=== PATIENT | female | born 1960 | race Caucasian/White ===

== ENCOUNTER 2016-11-21 14:05 | Emergency (ER) | payer OTHER ==
[~2016-11-21] VITALS: Wt 120.0 kg
[2016-11-21 14:15] VITALS: BP 158/98; PULSE 100; RESP 18; TEMP 98
[2016-11-21] MEDS ORDERED: AMLO5TAB4 PO (14:41)
[2016-11-21 15:34] LABS: INR 0.85; PROTIME 11.6 Sec (12.2-14.2); PT RATIO 0.9
[2016-11-21 15:35] LABS: PARTIAL THROMBOPLASTIN TIME 30.4 Sec (25.0-35.0)
[2016-11-21 15:37] LABS: BASOPHILS % 0.6 % (0.0-2.0); EOSINOPHILS % 0.5 % (0.0-7.0); HEMATOCRIT 46.8 % (37.0-47.0); HEMOGLOBIN 16.5 g/dl (12.0-16.0); LYMPHOCYTES # 2.2 10^3/ul (0.8-2.9); LYMPHOCYTES % 27.4 % (15.0-51.0); MEAN CORPUSCULAR HEMOGLOBIN 29.9 pg (29.0-33.0); MEAN CORPUSCULAR HGB CONC 35.4 g/dl (32.0-37.0); MEAN CORPUSCULAR VOLUME 84.5 fl (82.0-101.0); MEAN PLATELET VOLUME 8.6 fl (7.4-10.4); MONOCYTE # 0.4 10^3/ul (0.3-0.9); MONOCYTES % 5.3 % (0.0-11.0); NEUTROPHIL # 5.4 10^3/ul (1.6-7.5); NEUTROPHILS % 66.2 % (39.0-77.0); PLATELET COUNT 285 10^3/UL (140-440); RED BLOOD COUNT 5.53 10^6/ul (4.20-5.40); RED CELL DISTRIBUTION WIDTH 12.9 % (11.5-14.5); UNCORRECTED WBC 8.1 10^3/ul (4.8-10.8); WHITE BLOOD COUNT 8.1 10^3/ul (4.8-10.8)
[2016-11-21 15:38] LABS: CHLORIDE 100 mmol/L (97-110); POTASSIUM 4.1 mmol/L (3.5-5.1); SODIUM 143 mmol/L (135-144)
[2016-11-21 15:39] LABS: CONDITION 1
[2016-11-21 15:41] LABS: ANION GAP 18 (8-16); BLOOD UREA NITROGEN 12 mg/dl (7-20); CARBON DIOXIDE 29 mmol/L (21-31); CREATININE 0.64 mg/dl (0.44-1.00); GLUCOSE 89 mg/dl (70-220)
[2016-11-21 15:42] LABS: CALCIUM 10.1 mg/dl (8.4-10.2)
--- NOTE | 2016-11-21 15:57 | RADRPT ---
PROCEDURE: Chest x-ray CLINICAL INDICATION: Left hand numbness TECHNIQUE: Chest single view COMPARISON: None FINDINGS: The heart is normal in size. The pulmonary vessels are normal in caliber. The lungs are clear. Th e costophrenic angles are sharp. The visualized bony thorax is unremarkable. IMPRESSION: No acute cardiopulmonary disease. RPTAT: HH .Brendon Lagos MD, Date Time Electronically viewed and signed by .Brendon Lagos MD, MD on 11/21/2016 15:56 .W/
[2016-11-21 15:58] LABS: TROPONIN-I < 0.012 ng/ml (0.00-0.12)
--- NOTE | 2016-12-01 23:55 | ERD ---
DATE OF SERVICE: 11/21/2016 HISTORY OF PRESENT ILLNESS: This 56-year-old female presented to the emergency room stating that jean lemus has bilateral hand numbness. Left hand was number than the right, and the right hand also felt "s haky." She denies chest pain, shortness of breath. Symptoms have been present for 1 day. She lindsey es any weakness, focal or otherwise. Has had no fevers or chills. REVIEW OF SYSTEMS: Ten-point review of systems negative except as in HPI. PAST MEDICAL HISTORY: Hypertension, arthritis of the hands. PAST SURGICAL HISTORY: Negative. FAMILY HISTORY: Noncontributory. SOCIAL HISTORY: Denies tobacco, alcohol and other drugs. PHYSICAL EXAMINATION: VITAL SIGNS: Temperature 98, pulse 102, blood pressure 158/98, respirations 18, oxygen saturation 1 00% on room air. GENERAL: No acute distress. HEENT: Normocephalic, atraumatic. NECK: Supple. No JVD, no meningismus. CARDIAC: Mild regular tachycardia without murmurs. LUNGS: Clear to auscultation bilaterally. ABDOMEN: Soft, nontender, nondistended. No masses. EXTREMITIES: No cyanosis, clubbing or edema. No signs of trauma. VASCULAR: Distal pulses intact, all 4 extremities. Capillary refill less than 1 second of hands. SKIN: No rashes or other lesions. NEUROLOGIC: Alert and oriented x3. Cranial nerves II through XII intact. No focal deficits, no ce rebellar deficits. Normal gait. DIAGNOSTIC DATA: Laboratories: Coagulation studies are within normal limits. Chemistries are with in normal limits. Troponin is negative. CBC within normal limits except for mildly elevated hemogl obin of 16.5. Chest x-ray interpretation by myself: I see no acute process, no widened mediastinum, no pneumothor ax, no infiltrates, no pulmonary edema, no bony abnormalities. EKG interpretation: Sinus tachycardia, rate of 101, normal axis. No ST or T-wave changes concernin g for acute ischemia. quantitative researcher interpretation: Normal sinus rhythm with occasional mild sinus tachycardia. No arr hythmias. EMERGENCY DEPARTMENT COURSE AND MEDICAL DECISION MAKING: The patient is complaining of bilateral chance nd paresthesias with shaking of her right hand. Hand was not actually shaking but feels shaky. The patient wonders if these symptoms could be related to arthritis. Cardiac workup was performed and shows no ischemic changes on EKG and a negative troponin after symptoms that the patient admits have present for 1 day but have occurred before. She has a completely normal neurological examination w ith no weakness. Bilateral symptoms, it is very unlikely that this is a cerebrovascular accident. The patient is hypertensive in the ER and has yet to take her evening blood pressure pills. Benefit s of acutely lowering the blood pressure in the emergency room did not outweigh the risks of hypoten edin in a nonmonitored situation. Discharging the patient with primary care followup, instructions to take her blood pressure medication, instruction to follow up with primary care doctor for a neuro logy referral. DISCHARGE DIAGNOSES: 1. Bilateral hand paresthesias. 2. Hypertension. DISPOSITION: Home in stable condition. Dictated By: ASHU GRANT/ALFONZO Conf#: [id number] DID#: [id number]
== END 2016-11-21 17:00 | disposition home or self-care (01) ==
LOC: E/R 14:05
DX: R20.2 Paresthesia of skin (principal); I10 Essential (primary) hypertension; R40.2142 Coma scale, eyes open, spontaneous, at arrival to emergency department; R40.2362 Coma scale, best motor response, obeys commands, at arrival to emergency department; R40.2252 Coma scale, best verbal response, oriented, at arrival to emergency department
CPT/HCPCS: 71010; 80048; 84484; 85025; 85610; 85730; 93005; Z7502